=== PATIENT | female | born 1980 | race Caucasian/White ===

== ENCOUNTER 2019-09-06 22:47 | Observation (INO) ==
[2019-09-06 23:01] LABS: Hemoglobin 14.5 g/dL (11.5-15.4); Mean Corpuscular Hemoglobin 32.3 pg (28.0-33.3); Mean Platelet Volume 9.2 fL (9.4-12.4); Platelet Count 265 K/mcL (140-400); Red Blood Count 4.49 M/mcL (3.82-4.97); Red Cell Distribution Width 12.9 % (11.5-14.5); White Blood Count 10.9 K/mcL (4.3-11.1)
[2019-09-06 23:23] LABS: INR 1.1; Prothrombin Time 12.1 Seconds (9.4-12.1)
[2019-09-06 23:25] LABS: Activated Partial Thrombo Time 33.7 Seconds (26.0-36.0)
[2019-09-06 23:28] LABS: BUN/Creatinine Ratio 33 (6-26); Blood Urea Nitrogen 16 mg/dL (6-20); Calcium 9.1 mg/dL (8.6-10.3); Carbon Dioxide 28 mEq/L (23-29); Chloride 106 mEq/L (98-107); Glucose 96 mg/dL (70-105); Osmolality,Calculated 291 (280-300); Potassium 3.9 mEq/L (3.5-5.1); Sodium 140 mEq/L (136-145); Troponin I < 0.03 ng/mL (< 0.04); eGFR For African Americans > 60 (> 60); eGFR For Non-African Americans > 60 (> 60)
[2019-09-06] MEDS ORDERED: Prochlorperazine 10 MG/2 ML VIAL IVP STA (23:37)
[2019-09-06] MEDS ORDERED: 0.9 % Sodium Chloride 1,000 ML IVC ONE (23:37)
[2019-09-07] MEDS ORDERED: Ondansetron 4 MG/2 ML VIAL IVP PRN (00:54)
[2019-09-07] MEDS ORDERED: Naloxone 0.4 MG/ML INJ IVP PRN (00:54)
[2019-09-07] MEDS ORDERED: Gadolinium Contrast Agent (WT Based) IV PRN (00:56)
[2019-09-07] MEDS ORDERED: Aspirin 325 MG TABLET PO ONE (01:15)
[2019-09-07] MEDS: *HR* Heparin 5,000 UNIT/ML VIAL SQ SCH ×2 (06:00→12:49)
[2019-09-07 09:45] LABS: Hemoglobin 13.9 g/dL (11.5-15.4); Mean Corpuscular HGB Conc 32.6 g/dL (31.6-35.5)
[2019-09-07 09:48] LABS: INR 1.1; Prothrombin Time 12.4 Seconds (9.4-12.1)
[2019-09-07 09:52] LABS: Basophils # 0.1 K/mcL (0.0-0.2); Basophils % 0.8 %; Eosinophils # 0.2 K/mcL (0.0-0.6); Eosinophils % 2.2 %; Hematocrit 42.6 % (35.3-44.9); Immature Granulocytes % 0.6 % (0-4); Immature Platelets 1.4 % (1.1-6.1); Lymphocytes # 2.5 K/mcL (0.6-4.6); Lymphocytes % 29.6 %; Mean Corpuscular Hemoglobin 32.3 pg (28.0-33.3); Mean Corpuscular Volume 98.8 fL (83.0-100.0); Mean Platelet Volume 9.7 fL (9.4-12.4); Monocytes # 0.4 K/mcL (0.0-1.3); Monocytes % 4.7 %; Neutrophils # 5.2 K/mcL (1.6-8.9); Platelet Count 230 K/mcL (140-400); Red Blood Count 4.31 M/mcL (3.82-4.97); Red Cell Distribution Width 12.9 % (11.5-14.5); Segmented Neutrophils % 62.1 %; White Blood Count 8.4 K/mcL (4.3-11.1)
[2019-09-07 10:21] LABS: Chol/HDL Ratio 5.3 (0-4.9)
[2019-09-07 11:46] VITALS: BP 154/96
[2019-09-07 11:55] LABS: Amphetamine Screen,Urine Negative ng/mL (Cutoff=1000); Barbiturate Screen,Urine Negative ng/mL (Cutoff=200); Benzodiazepines Screen,Urine Negative ng/mL (Cutoff=200); Cannabinoid Screen,Urine Negative ng/mL (Cutoff = 50); Cocaine Screen,Urine Negative ng/mL (Cutoff= 300); Opiate Screen,Urine Negative ng/mL (Cutoff=300); Phencyclidine Screen,Urine Negative ng/mL (Cutoff=25)
== END 2019-09-07 17:24 | disposition home or self-care (01) ==
LOC: 3BNU 22:47 → EMEROOARM 22:47 → SUATTDRO 09-07 00:30 → 3BNU 09-07 01:15
PROVIDERS: ADMIT Internal Medicine; ATTEND Internal Medicine